=== PATIENT | female | born 1940 | race Caucasian/White ===

== ENCOUNTER 2016-10-16 06:24 | Inpatient (IN) ==
[2016-10-16] MEDS ORDERED: Lidocaine -MPF 1% 2 ML VIAL ID ONE (06:43)
[2016-10-16] MEDS ORDERED: Ringers Solution, Lactated 1,000 ML IVC SCH ×2 (06:45→10:15)
[2016-10-16] MEDS ORDERED: Albuterol 2.5 MG/3 ML NEBULIZER IH ONE (06:46)
[2016-10-16] MEDS ORDERED: CeFAZolin Pre 2,000 MG/100 ML 2,000 MG/100 ML BAG IVPB ONE (07:04)
--- NOTE | 2016-10-16 07:16 | Anesthesia Evaluation PreOp ---
Date of Encounter: 10/16/16 Time of Encounter: 07:14 - Past History Planned Operation: redo right CEA Cardiac History: HTN, Hyperlipidemia, Other (PAD Aortic stenosis) Pulmonary History: Smoker, Pack/yr (since 1959, last cigarette today) [employer] History: Denies Any Significant HX Anesthesia History: No Prior Anesthetic Complications, Past Anesthesia (CEA x 2. Difficult airway.) : No Alcohol Use: none Drug use: none Medications and Allergies Amlodipine Besylate 10 mg PO DAILY 11/04/15 [History] Aspirin Enteric Coated [Aspirin EC] 81 mg PO DAILY 11/04/15 [History] Atenolol [Tenormin] 25 mg PO BID 11/04/15 [History] Nitroglycerin 0.4 mg SL Q5MIN PRN 11/04/15 [History] Potassium Chloride Elixir [Potassium Chloride] 15 ml PO DAILY 11/04/15 [History] Pravastatin Sodium [Pravachol] 40 mg PO HS 11/04/15 [History] hydroCHLOROthiazide [Hydrochlorothiazide] 25 mg PO DAILY 11/04/15 [History] Allergies Penicillins [PCN] Allergy (Verified 11/08/15 10:15) See Comments patient states it made her "feel funny" she states she says she is allergic "just to be safe" - Meds/Allergy Pre-op Review Medications Reviewed: Yes Allergies Reviewed: Yes Beta Blockers on Current Med List: Yes If Beta Blockers taken, Date/Time (Last Dose taken): this morning Anesthesia Results - Labs Laboratory Tests 09/24/16 09/24/16 12:59 12:59 Hgb 11.4 L Hct 34.4 L Plt Count 259 Sodium 141 Potassium 3.7 BUN 14 Creatinine 0.69 Anesthesia Exam Selected Entries 10/16/16 06:46 10/16/16 07:09 Temperature 98.0 F Pulse Rate 55 Respiratory Rate 18 18 Blood Pressure 172/63 172/63 O2 Sat by Pulse Oximetry 99 99 Weight: 53kg NPO (# of Hours): 8 Pain Scale: 0 Pain Scale Used: Numeric (1 - 10) - HEENT Pupil (Motor): EOMI Mallampati: IV Teeth: Missing, Edentulous (upper) Oral Opening: Less than or equal to 3 - [employer] LOC: Oriented [employer] Motor: Normal RUE, Normal LUE, Normal RLE, Normal LLE, Normal Face [employer] Sensory: Normal: RUE, LUE, RLE, LLE, Face - Cardiac Rhythm: Regular Murmur: None - Pulmonary Breath Sounds: bilateral Clear Respiratory Effort: Symmetrical Anesthesia Assess/Plan ASA Score: 3 Modified [place] Scale for Level of Consciousness: Anixous, agitated or restless Anesthetic Plan: General Monitoring Plan: Standard Monitors, A-Line Recovery Plan: PACU (Discussed GA, possible need for awake intubation, risks of blood. Questions answered and agrees to proceed.)
[2016-10-16] MEDS ORDERED: Heparin 1,000 UNITS/500 mL NS 1,000 ML ONE (07:20)
[2016-10-16] MEDS ORDERED: Lidocaine 1% 20 ML MDV ONE (07:20)
[2016-10-16] MEDS ORDERED: Lidocaine -MPF 4% 5 ML AMPUL ONE (07:20)
[2016-10-16] MEDS ORDERED: *HR* Midazolam HCl 2 MG/2 ML VIAL ONE (07:24)
[2016-10-16] MEDS ORDERED: Ondansetron 4 MG/2 ML VIAL ONE (07:24)
[2016-10-16] MEDS ORDERED: *HR* FentaNYL (PF) 100 MCG/2 ML VIAL ONE ×2 (07:24→08:39)
[2016-10-16] MEDS ORDERED: *HR* Succinylcholine 200 MG/10 ML VIAL IVP ONE (07:24)
[2016-10-16] MEDS ORDERED: *HR* Propofol 200 MG/20 ML VIAL IVP ONE (07:25)
[2016-10-16] MEDS ORDERED: *HR* Etomidate 40 MG/20 ML VIAL IVP ONE (07:27)
[2016-10-16] MEDS ORDERED: *HR* Phenylephrine 10 MG/ML VIAL ONE (07:29)
[2016-10-16] MEDS ORDERED: EPHEDrine 50 MG/ML VIAL ONE (07:30)
--- NOTE | 2016-10-16 07:41 | History & Physical Report ---
Date of Encounter: 10/16/16 Time of Encounter: 07:30 24 Hour HP Update - Instructions Instructions: If the History and Physical is less than 30 days old and was completed prior to A.M. admission and or procedure and has NOT been updated on calendar day of procedure please complete this update prior to performing procedure. - Update Patient reports changes in Medical Condition: No Changes in examination, assessment, or condition: No Changes in Medication: No Preop tests/diagnostics Reviewed: Yes Surgery Remains Indicated: Yes Consent for Planned Operative Procedure(s) Verified: Yes - Pre-Operative Checklist Preoperative Checklist Indicated: Yes Prophylactic Antibiotic Ordered: Yes Home Medications Include Beta Milagro: Yes Beta Milagro Taken Today (Day of Surgery): Yes Beta Milagro Taken Yesterday (Day Prior to Surgery): Yes Is VTE Prophylaxis Indicated?: Yes
[2016-10-16] MEDS ORDERED: Lidocaine -MPF 2% 2 ML VIAL ONE (07:50)
[2016-10-16] MEDS ORDERED: *HR* Heparin 5,000 UNIT/ML VIAL ONE (09:56)
[2016-10-16] MEDS ORDERED: Ondansetron 4 MG/2 ML VIAL IVP ONE (10:09)
[2016-10-16] MEDS ORDERED: *HR* Labetalol 20 MG/4 ML SYRINGE IVP PRN (10:09)
[2016-10-16] MEDS ORDERED: Neostigmine Methylsulfate 3 MG/3 ML SYRINGE ONE (10:51)
--- NOTE | 2016-10-16 11:16 | Operative Note ---
Date of procedure: 10/16/16 Pre-op diagnosis: Recurrent right carotid stenosis Post-op diagnosis: same Procedure: Second time redo right carotid endarterectomy with bovine pericardial patch angioplasty and 8 Hungarian shunt Complications: None Anesthesia: LOUISEA Surgeon: Vivek Sanchez Estimated blood loss (cc): 100 Specimen: None Condition: stable Disposition: PACU Procedure in Detail: History Marita Muller is a 76-year-old white female was a long hiistory of bilateral carotid artery disease. The patient has had surgery dating back over 20 years ago. She had undergone a redo right carotid endarterectomy in 2016. On follow- up study she had developed a acute height or restenosis. Angiography was performed which confirmed this duplex finding with a stenosis of greater than 90 %. The patient now comes to the operating room for surgical repair of this lesion. Procedure After informed consent was obtained the patient was taken to the operating room. General endotracheal anesthesia was established under arterial line pressure monitoring. The right neck was sterilely prepped and draped. A timeout protocol was observed. The previous right neck incision was then reopened. The patient then underwent a very meticulous and tedious dissection as this was a second time redo carotid surgery. Careful dissection was made to separate the internal jugular vein from the carotid. The vagus nerve was found to be densely adherent to the posterior aspect of the common carotid artery. This was dissected off of the vessel so that the nerve would not be damaged during the procedure. Controls obtained of the carotid arteries selectively. 5000 units heparin was administered intravenously. After 3 minute delay the vessels were clamped with the internal carotid artery clamped first. An 11 blade knife and Cabrera scissors was used to open the vessel over the previously placed Dacron patch. Dissection was carried distally until the area of high-grade stenosis was encountered. A redo endarterectomy was then performed. This area appeared to be an typical intimal hyperplasia lesion. This was removed for the entire length of the previous endarterectomy. The originally placed Dacron patch was then excised. The bed of the vessel was inspected for any residual debris. A bovine pericardial patch was then placed and sewn into position. It should be noted that an 8 Hungarian shunt was inserted and a Doppler was used to ensure patency of the shunt. Leaving a small space open on the suture line the shunt was clamped divided and removed. The final few sutures were placed. The vessels were then unclamped with the internal carotid artery back flushed and then reclamped and the common and external opened and then finally the internal was reopened. The patient had no hemodynamic distress with this maneuver. Hemostasis was achieved. Excellent pulsations and Doppler signals were observed throughout the carotid system. A superficial cervical block using half percent Marcaine was performed. The wound was then closed in layers using absorbable suture. No drains were placed. The patient was extubated in the operating room. She was found to be neurologically stable. She was then transported to the recovery room in stable condition and on no hemodynamic drips.
[2016-10-16] MEDS: *HR* Morphine 2 MG/ML SYRINGE IVP PRN ×5 (11:45→21:13)
[2016-10-16] MEDS ORDERED: Naloxone 0.4 MG/ML INJ IVP PRN (12:21)
[2016-10-16] MEDS ORDERED: Ondansetron 4 MG/2 ML VIAL IVP PRN (12:21)
[2016-10-16] MEDS ORDERED: *HR* HYDROcodone/Acet 5/325 mg TABLET PO PRN (12:21)
[2016-10-16] MEDS ORDERED: Acetaminophen 325 MG TABLET PO PRN (12:21)
[2016-10-16] MEDS ORDERED: *HR* Morphine 2 MG/ML SYRINGE IVP PRN (12:21)
[2016-10-16] MEDS ORDERED: *HR* Metoprolol 5 MG/5 ML VIAL IVP PRN (12:21)
[2016-10-16] MEDS ORDERED: Nitroglycerin 0.4 MG TAB.SUBL SL PRN (12:21)
--- NOTE | 2016-10-16 12:44 | Anesthesia Evaluation Post Op ---
Date of Encounter: 10/16/16 Time of Encounter: 12:25 - Vital Signs Vital Signs: Last Vital Signs Temp 97.0 F L 10/16/16 12:31 Pulse 66 10/16/16 12:31 Resp 18 10/16/16 12:31 BP 125/47 10/16/16 12:31 Pulse Ox 95 10/16/16 12:31 - Lungs Lungs: Clear Ascult./Percussion - Airway Airway: Non-obstructed - Cardiovascular Regular Rate - Mental Status Mental Status: Alert & Oriented, Answers Appropriately - Pain Pain Scale: 4 - Nausea Vomiting Nausea Vomiting: Not Present - Hydration Hydration: NPO, Amaro catheter - Discharge PostOp Status: Transfer Patient to floor
[2016-10-16] MEDS: ceFAZolin 2,000 MG in D5% in Water 100 ML IVPB SCH ×2 (16:11→23:13)
[2016-10-17 05:03] LABS: Basophils % 0.1 %; Eosinophils % 0.1 %; Hemoglobin 9.2 g/dL (11.5-15.4); Immature Granulocytes % 0.4 % (0-4); Lymphocytes # 0.9 K/mcL (0.6-4.6); Lymphocytes % 11.3 %; Mean Corpuscular HGB Conc 32.9 g/dL (31.6-35.5); Mean Corpuscular Hemoglobin 30.6 pg (28.0-33.3); Mean Platelet Volume 11.1 fL (9.4-12.4); Monocytes # 0.5 K/mcL (0.0-1.3); Monocytes % 6.1 %; Neutrophils # 6.8 K/mcL (1.6-8.9); Platelet Count 261 K/mcL (140-400); Red Blood Count 3.01 M/mcL (3.82-4.97); Red Cell Distribution Width 14.6 % (11.5-14.5)
[2016-10-17 05:19] LABS: BUN/Creatinine Ratio 21 (6-26); Blood Urea Nitrogen 13 mg/dL (7-20); Calcium 8.5 mg/dL (8.6-10.8); Carbon Dioxide 26 mEq/L (19-29); Chloride 105 mEq/L (98-109); Glucose 99 mg/dL (70-99); Osmolality,Calculated 286 (280-300); Sodium 138 mEq/L (136-145); eGFR For African Americans > 60 (> 60); eGFR For Non-African Americans > 60 (> 60)
[2016-10-17 05:21] LABS: Potassium 3.4 mEq/L (3.5-4.5)
[2016-10-17] MEDS: ceFAZolin 2,000 MG in D5% in Water 100 ML IVPB SCH (07:42)
[2016-10-17 07:54] VITALS: BP 135/68
[2016-10-17] MEDS ORDERED: Potassium Chloride Elixir 20 MEQ/15 ML UDC PO SCH (09:00)
[2016-10-17] MEDS ORDERED: Aspirin Enteric Coated 81 MG Tablet PO SCH (09:00)
[2016-10-17] MEDS ORDERED: amLODIPine 5 MG TABLET PO SCH (09:00)
[2016-10-17] MEDS ORDERED: hydroCHLOROthiazide 25 MG TABLET PO SCH (09:00)
--- NOTE | 2016-10-17 09:58 | Discharge Summary ---
Date of Encounter: 10/17/16 Time of Encounter: 09:52 - Discharge Diagnosis (1) Carotid arterial disease Priority: Primary Status: Chronic Comments: Recurrent right carotid artery stenosis. Patient has had a previous carotid endarterectomy many years ago in [place]. She had a redo right carotid endarterectomy in 2016. On follow-up studies she had significant stenosis recurring there was greater than 90% in the right internal carotid artery. The patient now comes to the operating room for repair of this lesion. Qualifiers: Laterality: bilateral Qualified Code(s): I77.9 - Disorder of arteries and arterioles, unspecified - Discharge Medications Prescriptions: Acetaminophen w/Codeine Soln [Tylenol w/Codeine Liq 120-12 mg] 5 ml PO Q6HR PRN #60 udc PRN Reason: Pain Home Medications: Amlodipine Besylate 10 mg PO DAILY 11/04/15 [History] Aspirin Enteric Coated [Aspirin EC] 81 mg PO DAILY 11/04/15 [History] Nitroglycerin 0.4 mg SL Q5MIN PRN 11/04/15 [History] Potassium Chloride Elixir [Potassium Chloride] 15 ml PO DAILY 11/04/15 [History] Pravastatin Sodium [Pravachol] 40 mg PO HS 11/04/15 [History] hydroCHLOROthiazide [Hydrochlorothiazide] 25 mg PO DAILY 11/04/15 [History] Atenolol [Tenormin] 50 mg PO DAILY 10/16/16 [History] Acetaminophen w/Codeine Soln [Tylenol w/Codeine Liq 120-12 mg] 5 ml PO Q6HR PRN #60 udc 10/17/16 [Rx] Allergies/Adverse Reactions: Allergies Penicillins [PCN] Allergy (Verified 11/08/15 10:15) See Comments patient states it made her "feel funny" she states she says she is allergic "just to be safe" Date of admission: 10/16/16 12:11 Primary care physician: More Ferreira CNP Consults: None Procedure(s) Performed: Second time redo right carotid endarterectomy with bovine pericardial patch angioplasty Discharging clinician: Vivek Sanchez Anticipated date of discharge: 10/17/16 - Patient Status Disposition: Home, Self-Care Condition: Good Functional capacity at discharge: independent ambulation Overall status at discharge: patient is progressing back to baseline - Discharge Instructions Follow Up With: More Ferreira CNP [Primary Care Provider] - 10/22/16 4:00 pm Vivek Sanchez MD [Partnered Physician] - 10/29/16 9:45 am (This appointment is in [place]) Additional Instructions: Keep right neck incision dry for a total of 5 days following surgery. Use ice pack on right neck surgical area for the next 2-3 days. No automobile driving. No lifting greater than 10 pounds. No manual labor. Patient may walk inside and outside as tolerated. Patient may use stairs as tolerated. - Diet and Activity Activity: increase activity as tolerated Diet: advance to your usual diet - Hospital Course Hospital course: Ms. Muller is a 76 year old female With recurrent right carotid artery stenosis. Patient was admitted taken to surgery yesterday for a second time redo right carotid endarterectomy. She had a bovine pericardial patch placed. She had no periprocedural complications. She was neurologically intact. She was felt fit for discharge on postoperative day # 1. Instructions were given in regards to wound care and medications and activities. Patient is to follow-up with Dr. Sanchez in 2 weeks. - Time Spent with Patient Total time spent providing and/or coordinating discharge services: Exam Vital Signs, Last 4 Hours Temp Pulse Resp BP Pulse Ox 10/17/16 07:00 97.7 F 59 18 135/68 100 General: Present: Conversant, No Apparent Distress, Well developed, Well nourished HEENT: Present: Atraumatic, Trachea midline Neck: Absent: JVD Cardiac: Present: Reg Rate and Rhythm Lungs: Present: Normal Breath Sounds Neuro: Present: Alert and responsive, No focal deficits noted, Cranial nerves grossly intact, Motor nerves grossly intact, Sensory nerves grossly intact Vascular: Present: Surgical incisions (Clean and dry) Skin: Present: No rashes noted on visualized skin - VTE Documentation of Mechanical Device: Intermittent pneumatic compression device
== END 2016-10-17 11:35 | disposition home or self-care (01) | DRG 39 ==
LOC: SAMDAY 06:24 → 2NNU 12:11
PROVIDERS: ADMIT Surgery Vascular Surgery; ATTEND Surgery Vascular Surgery